=== PATIENT | female | born 1985 | race American Indian/Alaskan Native ===

== ENCOUNTER 2017-07-21 19:26 | Emergency (ER) | payer MEDICAID ==
[2017-07-21] MEDS ORDERED: TYLENOL PO ONE (19:59)
[2017-07-21] MEDS ORDERED: TYLENOL ONE (20:03)
[2017-07-21 20:08] VITALS: BP 164/95
--- NOTE | 2017-07-21 21:50 | XRay Report ---
FINAL REPORT EXAM: XR FOOT 3+V LT HISTORY: Pain 5th digit left foot, cerebral palsy TECHNIQUE: AP, oblique and lateral views of the left foot. PRIORS: None. FINDINGS: The exam is limited due to positioning. The osseous mineralization is decreased. There is pes planus, hallux valgus and flexion deformities of the toes. Mild degenerative changes are seen in the midfoot and at the talonavicular joint. Old distal tibial fracture is seen. Diffuse soft tissue swelling. IMPRESSION: Osteopenia. Pes planus, hallux valgus and flexion deformities of the toes. 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 Old distal tibial fracture. Diffuse soft tissue swelling.
--- NOTE | 2017-07-21 22:15 | Emergency Department Report ---
HPI - General Chief Complaint: Extremity Injury, Lower Time Seen by Provider: 07/21/17 21:09 - HPI HPI: 31-year-old female presents today complaining of left foot pain since this morning. She states that the pain is more localized towards her last 2 toes. Patient has history of cerebral palsy and states that since the age of 12 and her left foot has been numb. Denies injury or trauma. Denies history of similar symptoms. Denies fever, chills, nausea, vomiting, chest pain, shortness of breath, abdominal pain. ED Past Medical Hx - Past Medical History Previous Medical History?: Yes Hx Hypertension: No Hx Heart Attack/AMI: No Hx Diabetes: No Hx Deep Vein Thrombosis: No Hx Liver Disease: (hep C trait) Hx Renal Disease: No Hx Sickle Cell Disease: No Hx Seizures: No Hx Asthma: No Additional medical history: Cerebral Palsey, HTN, Anxiety - Surgical History Past Surgical History?: No - Social History Smoking Status: Never Smoker Substance Use Type: None - Medications Home Medications: Home Medications Medication Instructions Recorded Confirmed Last Taken Type Docusate Sodium [Colace] 100 mg PO BID PRN #60 capsule 09/12/13 Unknown Rx Ibuprofen [Motrin] 800 mg PO TID PRN #60 tablet 09/12/13 Unknown Rx oxyCODONE /ACETAMINOPHEN [Percocet 1 tab PO Q6HR PRN #45 tablet 09/12/13 Unknown Rx 5/325 mg] Naproxen [Naprosyn] 500 mg PO BID #20 tablet 07/21/17 Unknown Rx ED Review of Systems ROS: Stated complaint: BROKEN TOE Other details as noted in HPI Constitutional: denies: chills, fever, malaise Eyes: denies: eye pain ENT: denies: ear pain, throat pain, congestion Respiratory: denies: cough, shortness of breath, wheezing Cardiovascular: denies: chest pain, palpitations Endocrine: no symptoms reported Gastrointestinal: denies: abdominal pain, nausea, vomiting Musculoskeletal: arthralgia Skin: denies: rash Neurological: denies: headache Physical Exam - Physical Exam Vital Signs: Vital Signs 07/21/17 20:04 Temperature 98.2 F Pulse Rate 86 Respiratory 20 Rate Blood Pressure 164/95 [Right] O2 Sat by Pulse 98 Oximetry Physical Exam: GENERAL: The patient is well-developed and well-nourished. Patient is in NAD. HEAD: Normocephalic. Atraumatic. NECK: Supple, nontender, without lymphadenopathy. No meningitic signs are noted. CHEST/LUNGS: Clear to auscultation throughout. HEART/CARDIOVASCULAR: Regular rate and rhythm. No murmurs, rubs or gallops. ABDOMEN: Abdomen is soft, nontender. Bowel sounds normoactive. No guarding or rebound tenderness. EXTREMITIES: No ecchymosis noted. Positive for edema to bilateral lower extremities, not new. Tenderness to palpation at the base of the left fourth and fifth toe. Range of motion limited, not new. Peripheral pulses intact. Capillary refill less than 2 seconds. NEURO: Alert and oriented x 3. GCS score of 15. ED Course Vital Signs 07/21/17 20:04 Temperature 98.2 F Pulse Rate 86 Respiratory 20 Rate Blood Pressure 164/95 [Right] O2 Sat by Pulse 98 Oximetry ED Medical Decision Making - Lab Data Vital Signs 07/21/17 20:04 Temperature 98.2 F Pulse Rate 86 Respiratory 20 Rate Blood Pressure 164/95 [Right] O2 Sat by Pulse 98 Oximetry - Radiology Data Radiology results: report reviewed HISTORY: Pain 5th digit left foot, cerebral palsy TECHNIQUE: AP, oblique and lateral views of the left foot. PRIORS: None. FINDINGS: The exam is limited due to positioning. The osseous mineralization is decreased. There is pes planus, hallux valgus and flexion deformities of the toes. Mild degenerative changes are seen in the midfoot and at the talonavicular joint. Old distal tibial fracture is seen. Diffuse soft tissue swelling. IMPRESSION: Osteopenia. Pes planus, hallux valgus and flexion deformities of the toes. 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 Old distal tibial fracture. Diffuse soft tissue swelling. - Medical Decision Making 31-year-old female presents today complaining of pain to the base of the left fourth and fifth toe. Her x-ray results reveal no acute findings. Osteopenia, paced penis, hallux valgus and flexion deformities of the toes noted. Osteoarthritis of the midfoot and Tylenol and navicular joint noted. Old distal tibial fracture and diffuse soft tissue swelling noted. Patient has been provided with a referral for orthopedic.Patient is in no acute distress at this time. She will be discharged home and is encouraged to follow up with a primary care provider. She will be sent home on Naprosyn and is encouraged to return to the emergency room for any worsening symptoms. Critical care attestation.: If time is entered above; I have spent that time in minutes in the direct care of this critically ill patient, excluding procedure time. ED Disposition Clinical Impression: Cerebral palsy, hemiplegic Foot pain Qualifiers: Laterality: left Qualified Code(s): M79.672 - Pain in left foot Disposition: - TO HOME OR SELFCARE Is pt being admited?: No Does the pt Need Aspirin: No Condition: Stable Instructions: Arthralgia (ED) Additional Instructions: Follow-up with primary care provider and internet database specialist. Return to the emergency department if symptoms worsen. Prescriptions: Naproxen [Naprosyn] 500 mg PO BID #20 tablet Referrals: PRIMARY CARE, [Primary Care Provider] - 3-5 Days TRAVIS WONG DPM [Staff Physician] - 3-5 Days Forms: Work/School Release Form(ED), Accompanied Note Time of Disposition: 22:19
== END 2017-07-21 22:35 | disposition home or self-care (01) ==
LOC: ED 19:26
DX: M79.672 Pain in left foot (principal); G80.8 Other cerebral palsy; Z86.19 Personal history of other infectious and parasitic diseases; I10 Essential (primary) hypertension; F41.9 Anxiety disorder, unspecified
CPT/HCPCS: 99283

== ENCOUNTER 2017-08-16 21:03 | Emergency (ER) | payer MEDICAID ==
[2017-08-16 22:09] VITALS: BP 154/78
[2017-08-17] MEDS ORDERED: MOTRIN ONE (02:47)
[2017-08-17] MEDS ORDERED: MOTRIN PO ONE (02:47)
== END 2017-08-17 05:54 | disposition left against medical advice (07) ==
LOC: ED 21:03
DX: K08.89 Other specified disorders of teeth and supporting structures (principal); Z53.21 Procedure and treatment not carried out due to patient leaving prior to being seen by health care provider